=== PATIENT | female | born 1960 | race Native Hawaiian/Other Pacific Islander ===

== ENCOUNTER 2019-07-17 14:22 | Outpatient (CLI) | payer BC | END 2019-07-17 22:19 | disposition home or self-care (01) | LOC: MAMMO 14:22 | DX: Z12.31 Encounter for screening mammogram for malignant neoplasm of breast (principal) ==

== ENCOUNTER 2022-11-20 13:26 | Outpatient (CLI) | payer BC | END 2022-11-20 20:37 | disposition home or self-care (01) | LOC: MAMMO 13:26 | PROVIDERS: ATTEND Specialist | DX: Z12.31 Encounter for screening mammogram for malignant neoplasm of breast (principal) ==

== ENCOUNTER 2023-01-15 07:59 | Outpatient (CLI) | payer BC | END 2023-01-15 20:19 | disposition home or self-care (01) | LOC: RAD 07:59 | PROVIDERS: ATTEND Internal Medicine | DX: Z13.820 Encounter for screening for osteoporosis (principal); N95.1 Menopausal and female climacteric states; N95.8 Other specified menopausal and perimenopausal disorders ==